=== PATIENT | female | born 1985 | race African-American/Black ===

== ENCOUNTER 2017-06-02 22:15 | Emergency (ER) | payer SELFPAY ==
[~2017-06-02] VITALS: Ht 157.5 cm; Wt 81.1 kg
[2017-06-02] MEDS ORDERED: NORCO 5/3251 TABLET PO (23:26)
[2017-06-02] MEDS ORDERED: CIPRODEX OTIC7.5 ML BOTH EARS (23:26)
[2017-06-02 23:42] VITALS: BP 151/115
== END 2017-06-02 23:43 | disposition home or self-care (01) ==
LOC: EME 22:15
DX: H60.92 Unspecified otitis externa, left ear (principal)
CPT/HCPCS: 99281; 99284

== ENCOUNTER 2017-06-21 13:25 | Emergency (ER) | payer SELFPAY ==
[~2017-06-21] VITALS: Ht 157.5 cm; Wt 79.5 kg
[~2017-06-21 13:25] MED LIST: CIPRODEX OTIC7.5 ML BOTH EARS; NORCO 5/3251 TABLET PO
[2017-06-21 14:22] LABS: EOSINOPHIL (%) 0.6 % (0-5); HEMATOCRIT 40.7 % (36.0-46.0); IMMATURE GRANULOCYTE (%) 0.3 % (0.0-0.7); INSTRUMENT ABS NEUTROPHIL CT 2.2 K/uL; LYMPHOCYTE COUNT 4.1 K/uL (1.0-2.8); MCH 27.1 PG (29.0-34.0); MCHC 33.4 G/DL (30.0-36.0); MCV 81.2 FL (83-99); MEAN PLAT.VOLUME 9.9 uM^3 (9.5-12.4); MONOCYTE (%) 9.7 % (3-12); MONOCYTE COUNT 0.7 K/uL (0-0.8); NEUTROPHIL (%) 30.8 % (45-76); NEUTROPHIL COUNT 2.2 K/uL (1.8-6.4); PLATELET COUNT 228 K/uL (156-360); RBC DIS.WIDTH-CV 14.4 % (11.8-14.6); RBC DIS.WIDTH-SD 42.1 % (39-53); RED BLOOD COUNT 5.01 M/uL (3.80-5.20)
[2017-06-21 14:30] LABS: CHLORIDE 107 mEq/L (99-109); SODIUM 140 mEq/L (136-147)
[2017-06-21 14:31] LABS: GLUCOSE 84 mg/dL (70-99)
[2017-06-21 14:33] LABS: ANION GAP 9 MEQ/L (2-14)
[2017-06-21 14:35] LABS: GFR ESTIMATE (CALCULATED) > 59 mL/min/
[2017-06-21 14:36] LABS: UREA NITROGEN (BUN) 6 mg/dL (9-23)
[2017-06-21 14:43] LABS: QUANTITATIVE HCG < 4.0 MIU/ML
[2017-06-21 16:08] LABS: ADD MIUA? YES; BILIRUBIN NEGATIVE; BLOOD LARGE; COLOR YELLOW ((YELLOW)); GLUCOSE (STRIP) NEGATIVE; KETONES NEGATIVE; LEUKOCYTES TRACE; NITRITE NEGATIVE; PROTEIN (STRIP) 100
[2017-06-21 16:20] LABS: BACTERIA NONE SEEN /HPF; CALCIUM OXALATE CRYSTALS 4+ /HPF; EPITHELIAL CELLS 1+ /HPF; MUCUS 3+ /LPF; RED BLOOD CELLS TNTC /HPF (0-5); WHITE BLOOD CELLS 15-20 /HPF (0-5)
[2017-06-21] MEDS ORDERED: PERCOCET 5/31 TABLET PO (17:00)
[2017-06-21 17:12] VITALS: BP 128/70
== END 2017-06-21 17:21 | disposition home or self-care (01) ==
LOC: RME 13:25 → EME 13:25 → RME 17:21
PROVIDERS: Physician Assistant
DX: N93.9 Abnormal uterine and vaginal bleeding, unspecified (principal)
CPT/HCPCS: 76856; 80048; 81003; 84702; 85025; 99281; 99284; J3010

== ENCOUNTER 2017-08-14 19:29 | Emergency (ER) | payer OTHER ==
[~2017-08-14] VITALS: Ht 157.5 cm; Wt 77.5 kg
[~2017-08-14 19:29] MED LIST changes: +PERCOCET 5/31 TABLET PO
[2017-08-14] MEDS ORDERED: NAPROSYN500 MG PO (22:09)
[2017-08-14] MEDS ORDERED: TOPAMAX100 MG PO (22:09)
[2017-08-14 23:23] VITALS: BP 134/96
== END 2017-08-14 23:25 | disposition home or self-care (01) ==
LOC: EME 19:29
DX: M54.2 Cervicalgia (principal); G93.2 Benign intracranial hypertension
CPT/HCPCS: 99281; 99283

== ENCOUNTER 2018-04-24 19:21 | Emergency (ER) | payer SELFPAY ==
[~2018-04-24] VITALS: Ht 157.5 cm; Wt 71.8 kg
[~2018-04-24 19:21] MED LIST changes: +NAPROSYN500 MG PO; +TOPAMAX100 MG PO
[2018-04-24 19:59] LABS: APPEARANCE SL.HAZY ((CLEAR)); BILIRUBIN NEGATIVE; BLOOD NEGATIVE; COLOR YELLOW ((YELLOW)); GLUCOSE (STRIP) NEGATIVE; KETONES NEGATIVE; LEUKOCYTES NEGATIVE; NITRITE NEGATIVE; PROTEIN (STRIP) NEGATIVE; SPECIFIC GRAVITY 1.025 (1.000-1.030)
[2018-04-24 20:10] LABS: BACTERIA RARE /HPF; EPITHELIAL CELLS 2+ /HPF; MUCUS TRACE /LPF; RED BLOOD CELLS 0-5 /HPF (0-5); UCUL ADDED? NO; WHITE BLOOD CELLS 0-5 /HPF (0-5)
[2018-04-24 20:24] LABS: HEMATOCRIT 39.5 % (36.0-46.0); HEMOGLOBIN 13.5 G/DL (11.9-15.5); MCH 28.2 PG (29.0-34.0); MCHC 34.2 G/DL (30.0-36.0); MCV 82.6 FL (83-99); PLATELET COUNT 237 K/uL (156-360); RBC DIS.WIDTH-CV 14.4 % (11.8-14.6); RED BLOOD COUNT 4.78 M/uL (3.80-5.20); WHITE BLOOD COUNT 7.5 K/uL (4.1-10.2)
[2018-04-24 20:34] LABS: ALBUMIN 4.1 g/dL (3.2-4.8); CHLORIDE 105 mEq/L (99-109); POTASSIUM 4.2 mEq/L (3.7-5.4); SODIUM 139 mEq/L (136-147)
[2018-04-24 20:36] LABS: GLUCOSE 89 mg/dL (70-99)
[2018-04-24 20:37] LABS: TOTAL PROTEIN 8.6 g/dL (6.4-8.3)
[2018-04-24 20:38] LABS: TOTAL BILIRUBIN 0.4 mg/dL (0.0-1.0)
[2018-04-24 20:40] LABS: ALKALINE PHOSPHATASE 63 IU/L (3-129); CREATININE 0.9 mg/dL (0.6-1.3); GFR ESTIMATE (CALCULATED) > 59 mL/min/
[2018-04-24 20:41] LABS: UREA NITROGEN (BUN) 12 mg/dL (9-23)
[2018-04-24 20:42] LABS: AST (GOT) 17 IU/L (2-34)
[2018-04-24 20:43] LABS: ALT (GPT) 8 IU/L (3-49)
[2018-04-24 20:51] LABS: QUANTITATIVE HCG < 4.0 MIU/ML
[2018-04-25 00:52] VITALS: BP 125/103
== END 2018-04-25 01:10 | disposition home or self-care (01) ==
LOC: EME 19:21
DX: R42 Dizziness and giddiness (principal); E16.2 Hypoglycemia, unspecified; R51 Headache; I49.8 Other specified cardiac arrhythmias
CPT/HCPCS: 80053; 81003; 82948; 84702; 85027; 93005; 99281; 99285